=== PATIENT | male | born 1950 | race Caucasian/White ===

== ENCOUNTER 2022-11-30 05:14 | Observation (INO) ==
--- NOTE | 2022-11-09 14:14 | PAT Medication Instructions ---
Medication Instructions Date of Service November 09, 2022 Home Medications bupropion HCl 300 mg 24 hr tablet, extended release 300 mg PO QAM cholecalciferol (vitamin D3) 25 mcg (1,000 unit) tablet (Vitamin D3) 25 mcg PO QAM docusate sodium 100 mg tablet 100 mg PO BID folic acid 1 mg tablet 1 mg PO QAM ibuprofen 800 mg tablet 800 mg PO TID multivitamin 1 tab PO QAM rosuvastatin 10 mg tablet 10 mg PO QAM thiamine HCl (vitamin B1) 100 mg tablet 100 mg PO QAM varenicline 1 mg tablet (Chantix) 1 mg PO BID ASK your surgeon for instructions ibuprofen 800 mg tablet 800 mg PO TID DO NOT take the morning of surgery cholecalciferol (vitamin D3) 25 mcg (1,000 unit) tablet (Vitamin D3) 25 mcg PO QAM docusate sodium 100 mg tablet 100 mg PO BID folic acid 1 mg tablet 1 mg PO QAM multivitamin 1 tab PO QAM thiamine HCl (vitamin B1) 100 mg tablet 100 mg PO QAM varenicline 1 mg tablet (Chantix) 1 mg PO BID Take morning of surgery With a small sip of water, OTHERWISE NOTHING TO EAT OR DRINK AFTER MIDNIGHT: bupropion HCl 300 mg 24 hr tablet, extended release 300 mg PO QAM rosuvastatin 10 mg tablet 10 mg PO QAM Take evening before surgery docusate sodium 100 mg tablet 100 mg PO BID varenicline 1 mg tablet (Chantix) 1 mg PO BID Other Notes If you have any questions please call us at [phone] or [phone] or [phone] or [phone]
--- NOTE | 2022-11-17 10:02 | Anesthesiology Consultation ---
Date of Service November 17, 2022 Assessment & Plan (1) Encounter for pre-operative examination: - COVID screening: Per assessment on 11/17: No known COVID-19 positive contacts or current COVID-19 related symptoms. Travel screen negative. Patient vaccinated. At surgeon discretion if preop Covid testing being done. - Outpatient joint assessment: Pt currently scheduled for inpatient pathway. If surgeon requests review for outpatient joint pathway, patient is an acceptable candidate for outpatient joint program from anesthesia standpoint pending surgeon's office assessment that patient is motivated, has good support and completes [facility] Program preop requirements. - Patient acceptable risk for surgery pending surgeon-ordered PCP preop evaluation ([facility]). Chart Review Chart Review: Patient seen in Pre Admission Testing Teaching & Discussion Pre-Anesthesia Teaching/Discussion Notes: Instructed NPO after midnight before surgery,except medications with 15 cc of water. Medication instructions provided according to the PAT guidelines. History Surgery Operation Date: 11/30/22 07:00 Proposed Procedures p Left Total Hip Arthroplasty - Darnell Cannon MD Height/Weight Height: 5 ft 11 in Weight: 92.6 kg Allergies Allergy/AdvReac Type Severity Reaction Status Date / Time hydrochlorothiazide Allergy Per [place] Verified 11/17/22 10:51 records, unknown reaction Medications Home Medications Medication Instructions Recorded Confirmed Last Taken bupropion HCl 300 mg 24 hr tablet, 300 mg PO QAM 11/07/22 11/07/22 Unknown extended release cholecalciferol (vitamin D3) 25 25 mcg PO QAM 11/07/22 11/07/22 Unknown mcg (1,000 unit) tablet (Vitamin D3) docusate sodium 100 mg tablet 100 mg PO BID 11/07/22 11/07/22 Unknown folic acid 1 mg tablet 1 mg PO QAM 11/07/22 11/07/22 Unknown ibuprofen 800 mg tablet 800 mg PO TID 11/07/22 11/07/22 Unknown multivitamin 1 tab PO QAM 11/07/22 11/07/22 Unknown rosuvastatin 10 mg tablet 10 mg PO QAM 11/07/22 11/07/22 Unknown thiamine HCl (vitamin B1) 100 mg 100 mg PO QAM 11/07/22 11/07/22 Unknown tablet varenicline 1 mg tablet (Chantix) 1 mg PO BID 05/30/23 05/30/23 Unknown Past Medical History Medical History Anxiety Chronic back pain Constipation Depression Hearing deficit Hyperlipidemia Osteoarthritis Post traumatic stress disorder Prediabetes Exercise / Class Metabolic Activity II 4-5 Yardwork/Stairs/Walk up hill (one FS (no CP, no SOB)) Past Family History Family History Other No family history of adverse response to anesthesia Past Surgical History Surgical History History of brain surgery 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 History of colonoscopy History of tooth extraction Full upper denture Past Anesthesia History No Hx of Anesthesia Complications and No Family Hx of Anesthesia Complications History of PONV No Hx of PONV and No Hx of Motion Sickness Social History Smoking Status: Light tobacco smoker tobacco type: cigarettes Smoking cigarettes per day: 3 cigs/day (advised) Do You Dip or Chew Tobacco: No Hx Alcohol Use: Yes alcohol intake frequency: a few times a week Hx Substance Use: No substance use type: does not use Review of Systems Patient denies chest pain, shortness of breath, dyspnea on exertion, fever, chills, cough, wheezing, palpitations. Physical Exam Vital Signs VITALS BP 116/78 P 62 TEMP 98.0 SP02 98%RA RESP 16 PHYSICAL Decreased cervical extension range of motion. Full TMJ range of motion. TMD 3 finger breaths Mallampati Score 2 Dentition: upper full dentures, several lower missing teeth Lungs: clear throughout to auscultation Cardiac: regular rate and rhythm, no murmurs noted Spine: normal Carotid arteries: negative bruit Extremities: no LE edema Lab Results Anesthesia Preop Results Results Anesthesia Widget: WBC 7.25 K/ul (4.8-10.8) 11/17/22 Hgb 13.9 g/dl (14.0-18.0) L 11/17/22 Hct 41.5 % (42.0-52.0) L 11/17/22 Plt 229 K/uL (130-400) 11/17/22 Na 140 mmol/L (136-145) 11/17/22 K 4.9 mmol/L (3.5-5.1) 11/17/22 Cl 109 mmol/L (98-107) H 11/17/22 CO2 27 mmol/L (21-32) 11/17/22 BUN 24 mg/dl (6-23) H 11/17/22 Creat 1.13 mg/dl (0.6-1.4) 11/17/22 Glucose Level 92 mg/dl (70-99(Fasting)) 11/17/22 PT 10.5 Seconds (9.0-12.0) 11/17/22 PTT 28.2 Seconds (21.0-31.0) 11/17/22 INR 1.0 (0.9-1.1) 11/17/22 Urine Color Dark Yellow 11/17/22 Urine Appearance Clear (Clear) 11/17/22 Urine pH 5.5 (4.5-7.5) 11/17/22 Urine Specific [place] 1.029 (1.000-1.030) 11/17/22 Urine Protein Negative (Negative) 11/17/22 Urine Glucose (UA) Negative (Negative) 11/17/22 Urine Ketones Negative (Negative) 11/17/22 Urine Blood Negative (Negative) 11/17/22 Urine Nitrite Negative (Negative) 11/17/22 Urine Bilirubin Negative (Negative) 11/17/22 Urine Urobilinogen Negative (Negative) 11/17/22 Urine Leukocyte Esterase Negative (Negative) 11/17/22 Blood Type A Positive 11/17/22 Antibody Screen NEGATIVE 11/17/22 Testing Electrocardiogram Date: 11/17/22 NSR at 62bpm. Echocardiogram Date: 12/04/19 EF 55 to 60%. No significant valvular disease. Stress Test Date: 01/07/20 Lexiscan stress ECG is negative for acute ischemic changes. Myocardial perfusion imaging is done at rest and after pharmaceutical stress is unremarkable. No evidence of myocardial ischemia or infarction. EF 66%. Other Testing CT Chest Date: 10/30/22 No pulmonary nodule or mass. Moderate pulmonary emphysema. No focal consolidation. Mild dependent atelectatic changes in bilateral lung bases. COVID-19 Risk Screen Screening Information COVID-19 Screen Date: 11/17/22 Exposure 21 Days Family/Household +COVID Last 21 Days: No Exposure 10 Days Any COVID Exposure Last 10 Days: No Symptoms Last 10 Days Experienced COVID Sx Last 10 Days: No + COVID 0-90 Days COVID + in Last 0-90 Days: No
[2022-11-30] MEDS ORDERED: FAMOTIDINE 20 MG TAB PO SCH (06:00)
[2022-11-30] MEDS ORDERED: ROPIVACAINE 0.5% HCL/PF 150 MG, BUPIVACAINE 0.75% MPF 20 ML, EPINEPHrine 0.15 MG, Ketor... INFIL SCH (06:00)
[2022-11-30] MEDS ORDERED: LR 60ML/HR IV SCH (06:00)
[2022-11-30] MEDS ORDERED: LR 500ML BOLUS, THEN 15ML/HR IV SCH (06:00)
[2022-11-30] MEDS ORDERED: ceFAZolin 2000MG 2,000 MG/15 ML SYR IV SCH (06:00)
[2022-11-30] MEDS ORDERED: traMADol HCL 50 MG TABLET PO SCH (06:00)
[2022-11-30] MEDS ORDERED: TRANEXAMIC ACID 1,000 MG **IV Intra-op IV SCH (06:00)
[2022-11-30] MEDS ORDERED: TRANEXAMIC ACID 1,000 MG **IV Pre-op IV SCH (06:00)
[2022-11-30] MEDS ORDERED: Scopolamine 1 MG TDSY TD SCH (06:00)
[2022-11-30] MEDS ORDERED: ACETAMINOPHEN 500 MG TAB PO SCH (06:00)
[2022-11-30] MEDS ORDERED: CeleBREX 200 MG CAP PO SCH (06:00)
[2022-11-30] MEDS ORDERED: dexAMETHasone 4 MG TAB PO SCH (06:00)
[2022-11-30] MEDS ORDERED: BUPIVACAINE 0.5 % 5 MG/1 ML PF 10ML VIAL ONE (06:16)
[2022-11-30] MEDS ORDERED: ROPIVACAINE 0.5% 5 MG/ML 30 ML VIAL ONE (06:16)
[2022-11-30] MEDS ORDERED: ePHEDrine sulfate 50 MG/ML AMP IV PRN (06:40)
[2022-11-30] MEDS ORDERED: fentaNYL citrate PF 100 MCG/2 ML VIAL IV PRN (06:40)
[2022-11-30] MEDS ORDERED: ONDANSETRON INJ 2 MG/ML 2 ML VIAL IV PRN ×2 (06:40→09:01)
[2022-11-30] MEDS ORDERED: ATROPINE SULFATE 0.1 MG/ML 10ML SYR IV PRN (06:40)
--- NOTE | 2022-11-30 06:40 | History & Physical Bridge Note ---
Date of Service November 30, 2022 History & Physical Bridge Note I have examined the patient, reviewed the History & Physical and in the interval since the performance of the History & Physical I have noted the following changes of clinical significance: patient reports he quit smoking as instructed. Otherwise, no changes noted
[2022-11-30] MEDS ORDERED: MIDAZOLAM HCL 1 MG/ML 2ML VIAL ONE ×2 (06:42)
[2022-11-30] MEDS ORDERED: ORTHO JOINT ANESTHETIC ONE (06:45)
[2022-11-30] MEDS ORDERED: PROPOFOL IV EMULSION 10 MG/ML 20 ML VIAL IV ONE ×2 (07:22→07:38)
--- NOTE | 2022-11-30 08:54 | Operative Report ---
Post Operative Report Pre & Post Diagnosis Operation Date: 11/30/22 07:00 Pre-Op Diagnosis: Left Hip Degenerative Joint Disease Post-Op Diagnosis: Left Hip Degenerative Joint Disease I identified the patient and participated in the time-out.: Yes Procedure Operation Date: 11/30/22 07:00 Actual Procedures p Left Total Hip Arthroplasty(Left) - Darnell Cannon MD Surgeon Darnell Cannon MD [employer] Gerri Barron PA-C and Duke Mitchell MS2 Estimated Blood Loss 100 Findings Consistent with Post-Op Diagnosis Specimens Left femoral head Anesthesia Type Spinal MAC Complications none Disposition Disposition: Recovery Room Indications 72-year-old male with left hip osteoarthritis refractory to conservative management. X-rays demonstrate joint space narrowing, subchondral sclerosis, and marginal osteophyte formation. I had a long discussion with him about the risks and benefits surgery, alternatives to surgery, expected outcomes. After reviewing all these elected to proceed with surgery. All questions were answered. Informed consent was signed. Description of Procedure Patient was identified in the preoperative holding area where the surgical site, left hip, was marked. A spinal anesthetic was placed, then the patient was brought back to the main operating room, placed in the operating table and moved into the lateral decubitus position. Axillary roll was placed. All bony prominences were padded. Perioperative antibiotics and tranexamic acid 1 gram IV were administered. Operative extremity was prepped and draped in the normal sterile fashion. Prior to incision a multidisciplinary timeout was called. All in the room were in agreement. We began by making an incision for a posterior approach to the hip. We dissected down through subcutaneous tissues to the level of the fascia. The fascia was incised in line with the incision. Charnley bow was placed. Fatty tissue was reflected posteriorly off the back of the greater trochanter to expose the piriformis and short external rotators of the hip. Patient was noted to have a large vein along the short external rotators and posterior aspect of the hip. This was suture-ligated with 3-0 Vicryl sutures x2. The piriformis and short external rotators were then dissected off the posterior aspect of the hip. A box cut was made in the capsule. Inferior hip capsule was released off the femur. The femoral head was dislocated. The femoral neck cut was made at our preoperative template. The acetabulum was then exposed. The labrum was sharply excised. Contents of the cotyloid fossa were removed with electrocautery. We then began reaming at a size 8 mm less than our preoperative template. We reamed up by [address] the way up to a size 58 mm cup. This gave us good bleeding cancellus bone circumferentially. The acetabulum was then irrigated out and dried. The real [place] Gription cup was then impacted down into position with 45 degrees of lateral opening and 25 degrees of anteversion. A single cancellous bone screw was placed up into the ilium. Excellent fixation was obtained. A trial liner for a 36 mm femoral head was then placed. Next we turned our attention to the femur. The lateral neck was removed with a box osteotome. Intramedullary guide was used followed by the lateralizing reamer. We then reamed up to a size 6 [place] stem. We then broached all the way up to a size 6. We began trialing with a high offset neck and a +8.5 head. Hip was reduced. Leg lengths were symmetric. The hip was stable in extension and external rotation, and stable in the sleeper position. At 90 degrees of hip flexion the hip could be internally rotated 60 degrees before levering out of the cup. I was very happy with the stability exam. Therefore the hip was dislocated and the femoral trial was removed. The acetabulum was re-exposed, and the trial liner was removed. An Altrx polyethylene liner for a 36 mm femoral head was then impacted into the shell. The locking mechanism was checked to ensure that it had engaged which it had. The femur was re-exposed. The femoral canal was irrigated and dried. The real size 6 high offset [place] femoral stem was opened up. This was impacted down into position. It sat at the same level as the femoral trial. Therefore the 36 mm ceramic femoral head with +8.5 mm offset was opened up and gently impacted down onto the trunnion. The hip was atraumatically reduced. Another 1 gram of IV tranexamic acid was started prior to closure. The wound was irrigated out with sterile Betadine solution. The periarticular injection cocktail was then placed. The short external rotators, piriformis, and posterior capsule were repaired through drill holes in the greater trochanter using #2 Vicryl. The fascia was run with a looped #1 PDS. The subcutaneous layer was closed with #1 PDS. The dermal layer was closed with 2-0 Vicryl. Zip line was used for the skin followed by a Silverlon dressing. A compressive dressing was then placed. The patient was then rolled supine. Leg lengths were rechecked and were symmetric. An abduction pillow was placed. Sedation was lifted and the patient was transferred to the recovery room in stable condition. Summary of implants: Depuy [place] Gription Acetabular Shell Sector Cup, 58 mm outer diameter [place] Cancellous bone screw, 6.5 x 40 mm [place] hole eliminator [place] Altrx Polyethylene Acetabular Liner, Neutral, with a 36 mm inner diameter DePuy [place] Femoral stem with [place], 12/14 taper, size 6 high offset 36 mm ceramic femoral head with +8.5 offset Postoperative course: Patient will be admitted overnight from the recovery room. Patient will be weightbearing as tolerated with posterior hip precautions. Aspirin for DVT prophylaxis I attest to the content of the Intraoperative Record and any orders documented therein. Any exceptions are noted below.
[2022-11-30] MEDS ORDERED: NALOXONE HCL 0.4 MG/1 ML VIAL/CARP IV PRN (09:01)
[2022-11-30] MEDS ORDERED: METOCLOPRAMIDE HCL INJ 5 MG/ML 2 ML VIAL IV PRN (09:01)
[2022-11-30] MEDS ORDERED: bisacodyL 10 MG SUPP PR PRN (09:01)
[2022-11-30] MEDS ORDERED: HYDROmorphone INJ 0.5 MG/0.5 ML SYR IV PRN (09:01)
[2022-11-30] MEDS ORDERED: MAGNESIUM HYDROXIDE SUSP 30 ML UDC PO PRN (09:01)
[2022-11-30] MEDS ORDERED: oxyCODONE HCL IR 5 MG TAB (IMMEDIATE RELEASE) PO PRN (09:01)
--- NOTE | 2022-11-30 09:59 | Anesthesiology Progress Note ---
Date of Service November 30, 2022 Anesthesia Post Procedure Vital Signs Vital Signs: Temp Pulse Pulse Resp BP Pulse Ox O2 Del Method 11/30/22 09:50 97.3 F L 59 L 18 137/83 97 Room Air 11/30/22 09:30 58 L 19 120/67 97 Room Air 11/30/22 09:20 97.5 F L 58 L 15 114/88 97 Room Air 11/30/22 09:10 58 L 15 121/73 99 Room Air 11/30/22 09:01 97.9 F 63 16 117/80 99 Room Air 11/30/22 05:25 98.2 F 65 18 139/79 96 Room Air Transfer of Care Handoff Completed per policy Notes Mental Status: alert / awake / arousable and participated in evaluation Patient Amnestic to Procedure: Yes Nausea / Vomiting: adequately controlled Pain: adequately controlled Airway Patency, RR, SpO2: stable & adequate BP & HR: stable & adequate Hydration State: stable & adequate Neuraxial Anesthesia: was administered and sensory block is resolving Anesthetic Complications: no major complications apparent and Pt Satisfied with anesthetic care
[2022-11-30] MEDS: SODIUM CHLORIDE 0.9% 1000ML 1,000 ML IV SCH ×2 (10:08→20:25)
--- NOTE | 2022-11-30 10:09 | XRay Report ---
XR hip 1V LT w pelvis HISTORY: 72 years-old Male IN PACU - Post Surgical left hip arthroplasty COMPARISON: Pelvis radiograph 11/17/2022 TECHNIQUE: AP view of the pelvis with 2 views of the left hip FINDINGS: Mild osteoarthritis of the right hip. Unremarkable appearance of the left hip arthroplasty. Expected postoperative soft tissue swelling and deep tissue air. No acute fracture or unexpected opaque foreig n body. IMPRESSION: Left hip arthroplasty with expected postoperative changes. ACT 112: Negative or not required by law. The above report was generated using voice recognition software. It may contain grammatical, syntax o r spelling errors. Electronically signed by: Chuck Mckeon M.D. 11/30/2022 10:07 AM
[2022-11-30] MEDS: CHANTIX~ORDER AWAITING ACTION SCH ×2 (11:18→16:11)
--- NOTE | 2022-11-30 11:28 | Operative Report ---
Post Operative Report Pre & Post Diagnosis Operation Date: 11/30/22 07:00 Pre-Op Diagnosis: Left Hip Degenerative Joint Disease Post-Op Diagnosis: Left Hip Degenerative Joint Disease I identified the patient and participated in the time-out.: Yes Procedure Operation Date: 11/30/22 07:00 Actual Procedures p Left Total Hip Arthroplasty(Left) - Darnell Cannon MD Surgeon Dr Cannon [employer] Specialist Gerri Barron PA-C and Duke Mitchell MS2 Estimated Blood Loss 100 Findings Consistent with Post-Op Diagnosis Specimens left hip femoral head Description of Procedure Pt was taken to operating room, placed under spinal anesthesia with sedation. Pt was given 2g Ancef IV. Prepped and draped in sterile fashion. I was present during the entire case and assisted with positioning, instrumentation, closure and dressings. Please see Dr. Cannon's op report for further detail. Pt was awake and transferred to PACU in stable condition I attest to the content of the Intraoperative Record and any orders documented therein. Any exceptions are noted below.
[2022-11-30] MEDS: KETOROLAC TROMETHAMINE 15 MG/ML VIAL IV SCH ×2 (11:48→17:21)
[2022-11-30] MEDS: ACETAMINOPHEN 500 MG TAB PO SCH ×2 (13:03→21:34)
[2022-11-30] MEDS: ceFAZolin 2000MG 2,000 MG/15 ML SYR IV SCH (17:21)
[2022-11-30] MEDS: Scopolamine CHECK PATCH PLACEMENT SCH (17:21)
[2022-11-30] MEDS: DOCUSATE SODIUM 100 MG CAP PO SCH (20:24)
[2022-11-30] MEDS ORDERED: SENNA 8.6 MG TAB PO SCH (21:00)
[2022-12-01] MEDS: ceFAZolin 2000MG 2,000 MG/15 ML SYR IV SCH (00:02)
[2022-12-01] MEDS: Scopolamine CHECK PATCH PLACEMENT SCH ×2 (00:03→08:00)
[2022-12-01] MEDS: KETOROLAC TROMETHAMINE 15 MG/ML VIAL IV SCH ×2 (00:03→05:38)
[2022-12-01] MEDS: CHANTIX~ORDER AWAITING ACTION SCH ×2 (00:04→07:11)
[2022-12-01] MEDS: ACETAMINOPHEN 500 MG TAB PO SCH (05:37)
[2022-12-01] MEDS: SODIUM CHLORIDE 0.9% 1000ML 1,000 ML IV SCH (07:10)
[2022-12-01] MEDS: DOCUSATE SODIUM 100 MG CAP PO SCH (07:59)
[2022-12-01 08:00] LABS: Basophils # (auto) 0.02 K/uL (0-0.2); Basophils % (auto) 0.1 %; Eosinophils # (auto) 0.01 K/uL (0-0.50); Eosinophils % (auto) 0.1 %; Hematocrit (blood only) 33.2 % (42.0-52.0); Hemoglobin 11.4 g/dl (14.0-18.0); Immature Granulocytes # (auto) 0.06 K/uL (0.01-0.20); Immature Granulocytes % (auto) 0.4 %; Lymphocytes # (auto) 1.66 K/uL (1.2-3.4); Lymphocytes % (auto) 11.6 %; Mean Corpuscular Hemoglobin 31.8 pg (25.0-34.0); Mean Corpuscular Hgb Conc 34.3 g/dL (32.0-36.0); Mean Corpuscular Volume 92.5 fL (80.0-100.0); Mean Platelet Volume 10.2 fL (9.4-12.4); Neutrophils # (auto) 11.58 K/uL (1.40-6.50); Neutrophils % (auto) 80.8 %; Platelet Count 190 K/uL (130-400); RDW Coefficient of Variation 13.2 % (11.5-14.5); Red Blood Count 3.59 M/uL (4.70-6.10); White Blood Count 14.33 K/ul (4.8-10.8)
[2022-12-01 08:23] LABS: BUN Creatinine Ratio 23.4 (10-20); Calcium 8.3 mg/dl (8.6-10.3); Creatinine Clr Calc Pharmacy 84.8 ml/min; Est GFR (African American) 94.8 ml/min; Est GFR (Non-African American) 81.8 ml/min; Potassium 3.9 mmol/L (3.5-5.1)
[2022-12-01] MEDS ORDERED: MULTIVITAMIN TAB PO SCH (09:00)
[2022-12-01] MEDS ORDERED: ASPIRIN 81 MG ECTAB PO SCH (09:00)
[2022-12-01] MEDS ORDERED: ROSUVASTATIN CALCIUM 10 MG TAB PO SCH (09:00)
[2022-12-01] MEDS ORDERED: THIAMINE HCL 100 MG TAB PO SCH (09:00)
[2022-12-01] MEDS ORDERED: FOLIC ACID 1 MG TAB PO SCH (09:00)
--- NOTE | 2022-12-01 09:48 | Orthopedic Progress Note ---
Date of Service December 01, 2022 Assessment & Plan (1) S/P total left hip arthroplasty: Plan: Total hip precautions reviewed Weightbearing as tolerated with walker assistance Abduction pillow use x6 weeks postoperatively DVT prophylaxis with ALBERTO stockings and aspirin Pain control with p.o. medication Ice with easy wrap Keep Silverlon dressing in place until follow-up PT/OT Plan is to discharge home today with in-home physical therapy for the first 2 weeks Follow-up with [facility] orthopedics as previously scheduled With questions contact our clinic at [phone] Admission and Anticipated Discharge Date Admission Date: November 30, 2022 Subjective This 72-year-old male seen day 1 status post left total hip arthroplasty. He states he is doing very well. He states that his pain is well controlled with the p.o. pain medication. He is anxious to be dressed and discharged home as soon as possible. Currently the patient denies chest pain, shortness of breath, fever, chills, sweats, nausea, vomiting, diarrhea or difficulty voiding. He also denies any numbness or tingling in his left lower extremity. Review of Systems Review of Systems: All systems reviewed & are unremarkable except as noted in Subjective Physical Exam Physical Exam: Left hip: Outer dressing is removed. Silverlon is clean dry intact and left in place. Patient is able to easily perform an active straight leg raise test and actively dorsi and plantarflex foot without issue. Quad strength is 4 out of 5. Patient is neurovascular intact in the left lower extremity. He has no pain with logroll or Stinchfield testing. He does experience some slight tension with light passive internal rotation of his hip but has no pain with passive flexion to 90 degrees or light passive external rotation. Results & Data Vital Signs (Past 12 Hours) Vital Signs Temp Pulse Resp BP Pulse Ox O2 Del Method 12/01/22 07:48 36.6 C 64 16 112/70 98 Room Air 12/01/22 03:19 36.5 C 63 16 120/72 95 Room Air 11/30/22 23:05 36.6 C 64 16 115/69 97 Room Air Diagnostic Findings Laboratory Results WBC 14.33 K/ul (4.8-10.8) H 12/01/22 07:31 RBC 3.59 M/uL (4.70-6.10) L 12/01/22 07:31 Hgb 11.4 g/dl (14.0-18.0) L 12/01/22 07:31 Hct 33.2 % (42.0-52.0) L 12/01/22 07:31 MCV 92.5 fL (80.0-100.0) 12/01/22 07:31 MCH 31.8 pg (25.0-34.0) 12/01/22 07: MCHC 34.3 g/dL (32.0-36.0) 12/01/22 07:31 RDW Std Deviation 45.0 fL (36.4-46.3) 12/01/22 07: RDW Coeff of Carlos Manuel 13.2 % (11.5-14.5) 12/01/22 07:31 Plt Count 190 K/uL (130-400) 12/01/22 07:31 MPV 10.2 fL (9.4-12.4) 12/01/22 07:31 Immature Gran % (Auto) 0.4 % 12/01/22 07:31 Neut % (Auto) 80.8 % 12/01/22 07:31 Lymph % (Auto) 11.6 % 12/01/22 07:31 [place] % (Auto) 7.0 % 12/01/22 07:31 Eos % (Auto) 0.1 % 12/01/22 07:31 Baso % (Auto) 0.1 % 12/01/22 07:31 Neut # (Auto) 11.58 K/uL (1.40-6.50) H 12/01/22 07:31 Lymph # (Auto) 1.66 K/uL (1.2-3.4) 12/01/22 07:31 [place] # (Auto) 1.00 K/uL (0.11-0.59) H 12/01/22 07:31 Eos # (Auto) 0.01 K/uL (0-0.50) 12/01/22 07:31 Baso # (Auto) 0.02 K/uL (0-0.2) 12/01/22 07:31 Immature Gran # (Auto) 0.06 K/uL (0.01-0.20) 12/01/22 07:31 Sodium 138 mmol/L (136-145) 12/01/22 07:31 Potassium 3.9 mmol/L (3.5-5.1) 12/01/22 07:31 Chloride 111 mmol/L (98-107) H 12/01/22 07:31 Carbon Dioxide 20 mmol/L (21-32) L 12/01/22 07:31 Anion Gap 7 (3-11) 12/01/22 07:31 BUN 22 mg/dl (6-23) 12/01/22 07:31 Creatinine 0.94 mg/dl (0.6-1.4) 12/01/22 07:31 Est Cr Clr Drug Dosing 84.8 ml/min 12/01/22 07:31 Est GFR ( Amer) 94.8 ml/min 12/01/22 07:31 Est GFR (Non-Af Amer) 81.8 ml/min 12/01/22 07:31 BUN/Creatinine Ratio 23.4 (10-20) H 12/01/22 07:31 Glucose 136 mg/dl (70-99(Fasting)) H 12/01/22 07:31 Calcium 8.3 mg/dl (8.6-10.3) L 12/01/22 07:31 SARS-CoV-2, RNA, NAAT NEGATIVE (NEGATIVE) 11/30/22 05:27 Impressions Hip/Pelvis X-Ray 11/30/22 09:01 XR hip 1V LT w pelvis HISTORY: 72 years-old Male IN PACU - Post Surgical left hip arthroplasty COMPARISON: Pelvis radiograph 11/17/2022 TECHNIQUE: AP view of the pelvis with 2 views of the left hip FINDINGS: Mild osteoarthritis of the right hip. Unremarkable appearance of the left hip arthroplasty. Expected postoperative soft tissue swelling and deep tissue air. No acute fracture or unexpected opaque foreign body. IMPRESSION: Left hip arthroplasty with expected postoperative changes. ACT 112: Negative or not required by law. The above report was generated using voice recognition software. It may contain grammatical, syntax or spelling errors. Electronically signed by: Chuck Mckeon M.D. 11/30/2022 10:07 AM
--- NOTE | 2022-12-01 10:21 | Discharge Summary ---
Date of Service December 01, 2022 Admission HPI Per Admitting Provider History of Present Illness Kulwant is here today for preoperative history and physical. He is scheduled to have a left total hip replacement on November 30, [address] Cannon. He has been having many years of left hip pain. It has progressively worsened. He last saw Dr. Cannon in June and was advised to stop smoking prior to his surgery. He is now cut down from a pack of cigarettes a day to 3 cigarett es/day. He is adamant that he will have "quit smoking" by the time of his surgery. He states that he has pain on a daily basis. Pain with any type of range of motion. Diminished activities of daily living due to pain in his left hip. He has pain with walking. Pain at night. Is hard for him to get comfortable. He has rest pain. Is hard for him to bend down and pick anything off the floor or tie his shoes. He does have a grabber that he uses to pick things up. He has pain on a daily basis. He has never had any injections or viscosupplementation into his left hip. He does take gsyu-ion-libexag anti- inflammatories such as Advil, Aleve and Tylenol. Due to his failure of conservative treatment surgical intervention has been recommended. He does agree to proceed with surgery. Review of Systems Admission Exam Per Admitting Provider General: Well-dressed, well-nourished. Normal mood and affect. Alert and oriented x3. HEENT: Head: Atraumatic, normocephalic. Eyes: Extraocular movements intact, pupils equal round and reactive to light, sclera normal. Ears: Ears grossly normal, TMs are clear normal light reflex. Nose: Nares are patent bilaterally. Throat: Oropharynx clear mucous membranes moist good dentition uvula midline. Neck: Supple, no lymphadenopathy, nontender palpation, full range of motion. Cardiac: Regular rate and rhythm, normal S1, S2. No murmurs, rubs or gallops appreciated. Lungs: Clear to auscultation bilaterally. No adventitious sounds. No accessory muscle use. Abdomen: Soft, nontender, nondistended, normal bowel sounds heard in all 4 quadrants. Extremities: Patient is in no acute distress breathing easily at 16 breaths per minute ambulate with a normal gait and coordination. They have an appropriate mood and affect. They weigh 90 kg and are 180 cm. Focusing on the patient's left lower extremity: 2+ DP pulse Sensation to light touch is intact Motor to the gastroc soleus, tibialis anterior, hip abduction/adduction, and EHL is 5/5. Able to perform straight leg raise. ++ logroll hip Hip range of motion Forward flexion 90 ; Abduction 20 ; Adductions 10 ; ER 15 ; IR 5 . - ELDER - FADIR Principal Diagnosis Left hip osteoarthritis Discharge Exam Left hip: Outer dressing is removed. Silverlon is clean dry intact and left in place. Patient is able to easily perform an active straight leg raise test and actively dorsi and plantarflex foot without issue. Quad strength is 4 out of 5. Patient is neurovascular intact in the left lower extremity. He has no pain with logroll or Stinchfield testing. He does experience some slight tension with light passive internal rotation of his hip but has no pain with passive flexion to 90 degrees or light passive external rotation. Discharge Data Allergies Allergy/AdvReac Type Severity Reaction Status Date / Time hydrochlorothiazide Allergy Per [facility] Verified 11/30/22 05:34 records, unknown reaction Procedures Performed Operation Date: 11/30/22 07:00 Actual Procedures p Left Total Hip Arthroplasty(Left) - Darnell Cannon MD Hospital Course (1) S/P total left hip arthroplasty: Patient had an uneventful overnight stay following left total hip arthroplasty. States he is doing very well. He is anxious to be discharged home later this morning. He states that he is scheduled to doing home physical therapy for the first 2 weeks postoperatively. Total hip precautions reviewed Weightbearing as tolerated with walker assistance Abduction pillow use x6 weeks postoperatively DVT prophylaxis with ALBERTO stockings and aspirin Pain control with p.o. medication Ice with easy wrap Keep Silverlon dressing in place until follow-up PT/OT Plan is to discharge home today with in-home physical therapy for the first 2 weeks Follow-up with [facility] as previously scheduled With questions contact our clinic at [phone] Total Time Total Time Spent Total Time Spent (In Minutes): 20 mins Discharge Plan Discharge Items Patient Disposition: Home - Home Health Services Reason For Visit: Left Hip Degenerative Joint Disease Discharge Diagnosis: Left hip degenerative joint disease Activity: As commented below Lifting: None Bathing: Keep incision dry Bathing Comment: May shower tomorrow Sexual Activity: Wait until after follow-up appointment Exercise/Sports: Wait until after follow-up appointment Driving/Machine Use: NO driving until cleared by alignment specialist Weightbearing: Left weightbearing Weightbearing Comment: as tolerated with walker assistance Non-emergency contact: Surgeon Call non-emergency contact if: you have any medication questions, your pain is worsening, your temperature is above 101.5, your wound has increased drainage and your wound pain has increased Follow-up/Referrals: Loreta Krishnan PA-C [Physician [employer]] - 12/15/22 11:15 am PCPPAMELA [Primary Care Provider] - Diet: Regular Addtl Attending Provider Instructions: Post-operative Instructions Dear Patient and Family/Friends, Before you are discharged from the hospital, it is important to know what to expect when you get home after surgery. To that end, we have created this sheet of discharge instructions which covers many commonly asked questions. Make sure you go through this sheet in its entirety with your nurse before you are discharged. Please note that we will go over the specifics of your surgery and recovery when you return for your first post-operative visit. Sincerely, Dr. Cannon Medications 1. Oxycodone 5 mg: take 1-2 tabs every 4-6 hours as needed for pain relief. This will be sent to your pharmacy. 2. Aspirin 81 mg: take one tab twice daily for the first 30 days post operatively for blood clot prevention. 3. Diclofenac Sodium 75 mg: take one tab twice daily for 30 days post operatively for pain and inflammation relief. This will be sent to your pharmacy with 1 refill. 4. Extra Strength Tylenol 500 mg: take 2 tabs every 6-8 hours as needed for additional pain relief. Please purchase. Pain Expect to be in a fair amount of pain after surgery. Remember, our goal is not to eliminate your pain, but to make it tolerable. It is a good idea to stay ahead of your pain by taking the medications you were prescribed once you get home. Typically, the pain starts improving 3-7 days after surgery. You should start weaning off the narcotic pain medication (oxycodone, hydrocodone, hydromorphone, morphine) as soon as your pain improves. Please call our office if your pain is not adequately controlled. Ice Ice your operative site at least 5 times a day for 15-30 minutes at a time. Make sure you have a thin cloth between the ice or cooling unit and your skin to prevent coronel bite. This is especially important if you received a nerve block. Continue icing your operative site for the first 5-7 days after surgery, then as needed. Diet/Nausea/Vomiting Start by drinking clear liquids and eating crackers. If you can tolerate this, then you may resume your normal diet. If you feel nauseated or vomit, take Zofran/ondansetron (if prescribed). Please call our office if you have intractable nausea or vomiting, or, if after hours, you may go to the Emergency Room for help. Constipation Constipation is a common side effect of narcotic pain medication. If you have not had a bowel movement within 2 days after surgery, we recommend purchasing an over the counter laxative such as Milk of Magnesia, Dulcolax, or Miralax from a local pharmacy, and taking it as instructed. Call our clinic if any questions. Nerve block The anesthesia team sometimes places a nerve block to help with post-operative pain control. This results in significant numbness and inability to move the extremity. The nerve block usually wears off in 8-12 hours, but sometimes can last up to 24 hours. Please call our office if you are still unable to move your extremity after 24 hours, unless you received a pain pump to take home. Nerve blocks typically wear off quickly, so start taking pain medication as soon as you start feeling soreness near your surgical site. Weight bearing and Range of Motion. Do not bear any weight through your operative extremity immediately after surgery. If you had upper extremity surgery, do not lift anything with that arm. If you are in a knee brace, keep it locked in place until your follow-up. We will discuss your weight bearing, range of motion, and lifting restrictions in detail at your first post-operative appointment. Continuous Passive Motion (CPM) Machine If you were prescribed a CPM machine, it will start after your first post- operative appointment, at which time we will give you instructions on the range of motion settings and duration of treatment Physical therapy You will be given a prescription for physical therapy or occupational therapy at your first post-operative appointment. Typically, patients start therapy within 1 week of surgery Wound care and showering We will inspect your wound at your first post-operative visit, and may do a dressing change at that time. Most patients will be in a water-proof dressing that is removed 14 days after surgery. It is normal to see some dried blood on the dressing. Do not remove your dressing, paper strips or sutures yourself unless you are given permission. Showering is allowed the day after surgery. Do not scrub or remove any dressings. The wound should not be submerged underwater (i.e. in a bathtub or pool) until 4 weeks after surgery ALBERTO stockings If you were given white stockings, these are to be worn at all times except to shower (on both legs) for the first 2 weeks after surgery. Driving You may not drive while taking narcotic pain medication or while in a cast, splint, sling or brace. You, the patient, need to make the final determination about when you are safe to drive, however, the earliest you may consider driving after surgery is below: Hand/Wrist/Elbow Surgery: 3 days Shoulder Surgery: 2 weeks Hip,/Knee/Ankle Surgery: 4 weeks Fracture repair: 6 weeks Return to Work Your return to work depends on what surgery was done and what type of work you do. Please bring any paperwork your employer needs completed to your first post-operative visit. Also, bring a description of your job duties, as this helps us to understand what risks you may face at work. Travel Avoid long distance travel (greater than 1 hour) in airplanes and cars for the first 6 weeks after surgery. If you must travel, you need to have a Doppler ultrasound done before you travel to rule out a blood clot in your legs. Follow-up You should have a follow-up appointment already scheduled 1-2 days after surgery. If not, please contact our office to make this appointment before you leave the hospital. When to call the office It is normal to have swelling and bruising in the limb that was operated on. This will improve with time. It is also normal to have fevers for the first 2 days after surgery. Reasons you should call your doctor include: Uncontrolled pain; Nausea, vomiting, or constipation that does not improve with medication; Fevers over 101.5, chills, sweats; Drainage or bleeding from the wound; Foul odor; Spreading areas of redness; Any other concerns Pending Studies at Discharge: No Stand-Alone Forms: [facility], Smoking Cessation Medications and DC Order Prescriptions: New aspirin 81 mg Tablet,Delayed Release (Dr/Ec) 81 mg PO BID 30 Days Qty: 60 0RF acetaminophen [Tylenol Extra Strength] 500 mg Tablet 1,000 mg PO Q8 30 Days Qty: 180 0RF oxycodone 5 mg Tablet 5 - 10 mg PO Q4H PRN (Reason: Postoperative pain control) Qty: 28 0RF diclofenac sodium 75 mg tablet,delayed release (DR/EC) 75 mg PO BID 30 Days Qty: 60 1RF Continued multivitamin Tablet 1 tab PO QAM bupropion HCl 300 mg Tablet Extended Release 24 Hr 300 mg PO QAM cholecalciferol (vitamin D3) [Vitamin D3] 25 mcg (1,000 unit) Tablet 25 mcg PO QAM thiamine HCl (vitamin B1) 100 mg Tablet 100 mg PO QAM folic acid 1 mg Tablet 1 mg PO QAM docusate sodium 100 mg Tablet 100 mg PO BID rosuvastatin 10 mg Tablet 10 mg PO QAM varenicline [Chantix] 1 mg Tablet 1 mg PO BID Discontinued ibuprofen 800 mg Tablet 800 mg PO BID diphenhydramine-acetaminophen [Tylenol PM Extra Strength] 25-500 mg Tablet 1 - 2 tab PO HS PRN (Reason: Sleep) Johnson/Other Patient Handouts: How Your Hip Works Admission Data Admit Date/Time: 11/30/22 09:01 Attending Provider: Darnell Cannon Admit Provider: Darnell Cannon Primary Care Provider: PCP,NO Other Interventions: Discharge Summary Assessment (RN) Last Done: 12/01/22 09:53
[2022-12-01] MEDS ORDERED: CeleBREX 200 MG CAP PO SCH (21:00)
== END 2022-12-01 10:25 | disposition home health service (06) ==
LOC: ASU 05:14 → 3W 05:14